=== PATIENT | male | born 1990 | race African-American/Black ===

== ENCOUNTER 2016-11-09 09:06 | Emergency (ER) | payer OTHER ==
[~2016-11-09] VITALS: Ht 167.6 cm; Wt 73.5 kg
[2016-11-09 09:24] VITALS: BP 152/88
[2016-11-09] MEDS ORDERED: AZITHROMYCIN 250 MG TABLET. PO ONE (09:30)
[2016-11-09] MEDS ORDERED: metroNIDAZOLE 500 MG TABLET PO ONE (09:30)
[2016-11-09] MEDS ORDERED: cefTRIAXone IM 250 MG VIAL IM ONE (09:30)
[2016-11-09] MEDS ORDERED: CIPR500T94 PO (09:47)
--- NOTE | 2016-11-09 09:47 | PHYS DOC ---
Past Medical History Past Medical History: No Pertinent History Past Surgical History: Other Additional Past Surgical Histo: mole removal from back Additional Information: 1/4 pack or 5-6 cigs/day. Alcohol Use: Occasionally Additional Information: "Like every weekend." Drug Use: None Adult General Chief Complaint Chief Complaint: SEXUALLY TRANSMITTED DISEASE [facility] HPI Patient is a 26 year old male presents to the emergency department stating that his girlfriend told him that she had been treated for an STD. He comes to the emergency department for treatment today. He states that he was told she had tested positive for chlamydia. Patient states that he has one sexual partner in which she does not use condoms with. He denies any abdominal pain he denies any nausea vomiting. He denies any penile drainage. He denies any lesions around the penile area. Review of Systems Review of Systems Constitutional: Denies fever or chills [] Eyes: Denies change in visual acuity, redness, or eye pain [] HENT: Denies nasal congestion or sore throat [] Respiratory: Denies cough or shortness of breath [] Cardiovascular: No additional information not addressed in HPI [] GI: Denies abdominal pain, nausea, vomiting, bloody stools or diarrhea [] : Denies dysuria or hematuria. Patient is concerned in regards to STDs Musculoskeletal: Denies back pain or joint pain [] Integument: Denies rash or skin lesions [] Neurologic: Denies headache, focal weakness or sensory changes [] Endocrine: Denies polyuria or polydipsia [] Current Medications Current Medications Current Medications Medications (Trade) Dose Ordered Sig/Jessica Start Time Stop Time Status Last Admin Dose Admin Azithromycin (Zithromax) 1,000 mg 1X ONCE 11/09/16 09:30 11/09/16 09:31 DC 11/09/16 09:42 1,000 MG Ceftriaxone Sodium (Rocephin Im) 250 mg 1X ONCE 11/09/16 09:30 11/09/16 09:31 DC 11/09/16 09:42 250 MG Metronidazole (Flagyl) 2,000 mg 1X ONCE 11/09/16 09:30 11/09/16 09:31 DC 11/09/16 09:41 2,000 MG Allergies Allergies Allergies Coded Allergies Type Severity Reaction Last Updated Verified No Known Drug Allergies 08/19/14 No Physical Exam Physical Exam Constitutional: Well developed, well nourished, no acute distress, non-toxic appearance. [] HENT: Normocephalic, atraumatic, bilateral external ears normal, oropharynx moist, no oral exudates, nose normal. [] Eyes: PERRLA, EOMI, conjunctiva normal, no discharge. [] Neck: Normal range of motion, no tenderness, supple, no stridor. [] Cardiovascular:Heart rate regular rhythm, no murmur [] Lungs & Thorax: Bilateral breath sounds clear to auscultation [] Abdomen: Bowel sounds normal, soft, no tenderness, no masses, no pulsatile masses. [] Skin: Warm, dry, no erythema, no rash. [] Back: No tenderness Extremities: No tenderness, no cyanosis, no clubbing, ROM intact, no edema. [] Neurologic: Alert and oriented X 3, normal motor function, normal sensory function, no focal deficits noted. [] Psychologic: Affect normal, judgement normal, mood normal. [] Current Patient Data Vital Signs Vital Signs Date Time Temp Pulse Resp B/P (MAP) Pulse Ox O2 Delivery O2 Flow Rate FiO2 11/09/16 09:24 98.5 109 16 98 Room Air 98.5 Lab Values Laboratory Tests Test 11/09/16 09:25 Urine Collection Type Unknown Urine Color Bere Urine Clarity Cloudy Urine pH 6.0 Urine Specific Ferdinand 1.025 Urine Protein 100 mg/dL (NEG-TRACE) Urine Glucose (UA) Negative mg/dL (NEG) Urine Ketones (Stick) 15 mg/dL (NEG) Urine Blood Negative (NEG) Urine Nitrite Negative (NEG) Urine Bilirubin Negative (NEG) Urine Urobilinogen Dipstick 1.0 mg/dL (0.2 mg/dL) Urine Leukocyte Esterase Moderate (NEG) Urine RBC 0 /HPF (0-2) Urine WBC >40 /HPF (0-4) Urine Squamous Epithelial Cells Few /LPF Urine Bacteria 0 /HPF (0-FEW) EKG EKG [] Radiology/Procedures Radiology/Procedures [] Course & Med Decision Making Course & Med Decision Making Pertinent Labs and Imaging studies reviewed. (See chart for details) Patient will also be treated for urinary tract infection. He will be placed on Cipro. Patient will be provided with a Rocephin injection, Zithromax and Flagyl. Patient was instructed that he will be contacted in 3-4 days of his STDs are positive. Patient was also encouraged to refrain from sexual intercourse for at least the next 2 weeks. Patient was provided with signs and symptoms to return back to the emergency department. Patient was also encouraged drink plenty of fluids such as water and cranberry juice. He was encouraged to avoid cranberry juice cocktail, carbonated beverages, caffeine, alcohol, and citrus fruits as these are considered irritants to the bladder. Patient agrees with discharge instructions treatment regimens and follow-up recommendations. [] Dragon Disclaimer Dragon Disclaimer This electronic medical record was generated, in whole or in part, using a voice recognition dictation system. Departure Departure Impression: Primary Impression: Urinary tract infection Additional Impression: Concern about sexually transmitted disease in male without diagnosis Disposition: 01 HOME, SELF-CARE Condition: STABLE Referrals: NO PCP (PCP) Patient Instructions: Sexually Transmitted Disease, [id number], Urinary Tract Infection, [id number] Additional Instructions: Activity as tolerated. Medication as prescribed. You've been treated for sexual transmitted infections such as chlamydia, gonorrhea, and Trichomonas. Your test results will be back in approximately 3-4 days. You'll be contacted if the results are positive. Drink plenty of fluids such as water and cranberry juice. Avoid cranberry juice cocktail, carbonated beverages, citrus fruits, alcohol, and caffeine as these are considered irritants to the bladder. Refrain from sexual intercourse for the next 2 weeks. If you're test results are positive you'll need to contact your sexual partners in regards to your treatment. Follow-up with primary care physician next 7-10 days. Return back to emergency department signs and symptoms that become worse. Scripts Ciprofloxacin Hcl (CIPRO) 500 Mg Tablet 1 TAB PO BID, #14 TAB Prov: RUI DUMONT APRN 11/09/16 Problem Qualifiers RUI DUMONT APRN Nov 09, 2016 09:47
[2016-11-09 09:49] LABS: BILIRUBIN,URINE NEGATIVE (NEG); GLUCOSE,URINE NEGATIVE (NEG); NITRITE,URINE NEGATIVE (NEG); PROTEIN,URINE 100 mg/dL (NEG-TRACE)
[2016-11-09 10:12] LABS: BACTERIA,URINE 0 /HPF (0-FEW); RBC,URINE 0 /HPF (0-2); SQUAMOUS EPITHELIAL CELL,UR FEW /LPF; WBC,URINE >40 /HPF (0-4)
== END 2016-11-09 10:28 | disposition home or self-care (01) ==
LOC: ER 09:06
DX: Z20.2 Contact with and (suspected) exposure to infections with a predominantly sexual mode of transmission (principal); N39.0 Urinary tract infection, site not specified; F17.210 Nicotine dependence, cigarettes, uncomplicated
CPT/HCPCS: 81001; 87086; 87491; 87591; 96372; 99284; J0696; Q0144